=== PATIENT | male | born 1995 | race Two or more races ===

== ENCOUNTER 2020-06-09 21:19 | Emergency (ER) | payer SELFPAY ==
[2020-06-09] MEDS ORDERED: HYDROCODONE/ACETAMINOPHEN 5-325 MG TABLET PO ONE (22:01)
--- NOTE | 2020-06-09 22:05 | ER Document Report ---
ED Extremity Problem, Lower - General Chief Complaint: Toe Injury Stated Complaint: FOOT INJURY Time Seen by Provider: 06/09/20 21:55 Mode of Arrival: Ambulatory Information source: Patient - HPI Patient complains to provider of: Injury Location: Foot Notes: Patient here with complaints of right foot pain and injury. The patient states he accidentally dropped a car bebo on his right foot. Pain is constant, severe, worse with ambulation, better with ibuprofen and rest. He denies any fever. No nausea, vomiting, diarrhea. No numbness, tingling, weakness. No chest pain or shortness of breath. No rash. He denies any other injury or complaints at this time. - Related Data Allergies/Adverse Reactions: No Known Allergies Allergy (Unverified 06/09/20 21:55) Past Medical History - Social History Smoking Status: Current Every Day Smoker Frequency of alcohol use: None Drug Abuse: None Family History: Reviewed & Not Pertinent Review of Systems - Review of Systems -: Yes All other systems reviewed and negative Physical Exam - Vital signs Vitals: Temp Pulse BP Pulse Ox 98.2 F 80 139/58 H 100 06/09/20 21:40 06/09/20 21:40 06/09/20 21:40 06/09/20 21:40 - Notes Notes: GENERAL: alert, cooperative, nontoxic, no distress. HEAD: normocephalic, atraumatic EYES: conjunctiva pink without discharge, no external redness or swelling. EARS: no external swelling, no external redness NOSE: atraumatic, no external swelling MOUTH/THROAT: mucous membranes moist and pink NECK: soft, supple, full range of motion, no meningismus. CHEST: no distress, lungs clear and equal throughout. No wheezing, rales, rhonchi. CARDIAC: regular rate and rhythm, no murmur, normal capillary refill, normal pulses. BACK: full range of motion EXTREMITIES: Swelling to the dorsum of the right foot with ecchymosis at the MTP joint of the first second and third toes. No obvious deformities. Skin is intact. Normal pulse, cap refill and sensation. Tenderness to palpation of the dorsum of the foot. No ankle tenderness. No proximal tib-fib tenderness. Compartments are soft. No redness. NEURO: alert and oriented 3, no focal deficits, PYSCH: appropriate mood, affect. Patient is cooperative. SKIN: pink, warm, dry, no rash. Course - Re-evaluation Re-evalutation: 06/09/20 22:40 Patient resting comfortably at this time. I have gone over results with the patient. Questions been answered. We will discharge home. Patient had a postop shoe applied, he was given crutches. Patient is nontoxic-appearing stable vitals. Here with complaints of right foot pain. The patient accidentally dropped a car bebo on his right foot. No other injuries. There is no redness or signs of infection. Neurovascular he is intact. X-ray shows a nondisplaced fracture of the proximal right great toe. Patient was placed in a postop shoe and was given crutches. He was medicated with [place] here in the emergency department. Patient will be discharged home with instructions to rest, ice, elevate. Use crutches and postop shoe. Follow- up with orthopedics at the next available appointment. Follow-up sooner for worsening pain, fever, redness, numbness, tingling, weakness, any further concerns. - Vital Signs Vital signs: Temp Pulse Resp BP Pulse Ox 98.2 F 80 139/58 H 100 06/09/20 21:40 06/09/20 21:40 06/09/20 21:40 06/09/20 21:40 - Laboratory Results Critical Laboratory Results Reviewed: No Critical Results - Radiology Results Radiology Results Interpreted: 06/09/20 22:42 Nondisplaced fracture right proximal great toe Critical Radiology Results Reviewed: No Critical Results Procedures - Immobilization Right Foot Pre-Proc Neuro Vasc Exam: Normal Immobilizer type: Crutches, Post-op shoe Performed by: PCT Post-Proc Neuro Vasc Exam: Normal Alignment checked and good: Yes Discharge - Discharge Clinical Impression: Fracture of right great toe Qualifiers: Encounter type: initial encounter Fracture type: closed Phalanx: proximal Fracture alignment: nondisplaced Qualified Code(s): S92.414A - Nondisplaced fracture of proximal phalanx of right great toe, initial encounter for closed fracture Condition: Stable Disposition: HOME, SELF-CARE Instructions: Fractured Toe ([facility]) Additional Instructions: Take medication as prescribed. Use postop shoe and crutches. Rest, ice, elevate. Follow-up with orthopedics at the next available appointment. Follow- up sooner for worsening pain, fever, redness, numbness, tingling, weakness, any further concerns. Prescriptions: Hydrocodone/Acetaminophen [[place] 5-325 mg Tablet] 2 tab PO Q6H PRN #15 tab PRN Reason: Forms: Elevated Blood Pressure, Smoking Cessation Education Referrals: BRENDAN MCINTYRE DO [ACTIVE STAFF] - Follow up as needed
[2020-06-09 22:56] VITALS: BP 134/75
--- NOTE | 2020-06-09 23:05 | RADIOLOGY REPORT (SQ) ---
EXAM DESCRIPTION: FOOT RIGHT COMPLETE [facility]: XR FOOT 3 OR MORE VIEWS Views: 3 CLINICAL HISTORY: 24 years Male; dropped bebo on foot; COMPARISON: None. FINDINGS: There are acute fractures of the 1st proximal phalanx. These are displaced less than 2 mm. The adjacent MTP and IP joints are not dislocated. No hyperdense foreign bodies. No additional fractures. IMPRESSION: 1. Acute minimally displaced fractures of the 1st proximal phalanx
== END 2020-06-09 22:55 | disposition home or self-care (01) ==
LOC: ER 21:19
DX: S92.411A Displaced fracture of proximal phalanx of right great toe, initial encounter for closed fracture (principal); W22.8XXA Striking against or struck by other objects, initial encounter; F17.200 Nicotine dependence, unspecified, uncomplicated
CPT/HCPCS: 99284